=== PATIENT | male | born 1955 | race Caucasian/White ===

== ENCOUNTER 2024-12-04 05:49 | Inpatient (IN) ==
[2024-12-04] MEDS ORDERED: IOPAMIDOL 100 ML BOTTLE IV ONE (05:50)
[2024-12-04] MEDS: ACETAMINOPHEN 1,000 MG/100 ML BAG IV ONE (06:37)
[2024-12-04] MEDS: 0.9 % SODIUM CHLORIDE 1,000 ML IV ONE ×3 (06:42→11:46)
[2024-12-04 06:47] LABS: Basophils # (Auto) 0.04 K/mcL (0.00-0.30); Basophils % (Auto) 0.3 % (0.0-2.0); Eosinophils # (Auto) 0.19 K/mcL (0.00-0.70); Eosinophils % (Auto) 1.5 % (0.0-7.0); Hematocrit 40.3 % (40.1-51.0); Hemoglobin 13.8 g/dL (13.7-17.5); Lymphocytes # (Auto) 0.75 K/mcL (1.50-4.80); Lymphocytes % (Auto) 5.9 % (15.5-49.0); Mean Cell Volume 97.1 fL (80.0-100.0); Mean Corpuscular HGB Conc 34.2 g/dL (31.0-36.0); Mean Platelet Volume 9.5 fL (8.8-12.5); Monocytes % (Auto) 8.7 % (1.0-12.0); Neutrophils % (Auto) 83.4 % (38.0-78.0); Platelet Count 169 K/mcL (140-440); RBC 4.15 M/mcL (4.63-6.08); Red Cell Distribution Width 13.1 % (11.5-14.5); WBC 12.6 K/mcL (4.5-11.0)
[2024-12-04 06:59] LABS: ALT/SGPT 74 U/L (<40); AST/SGOT 52 U/L (<40); Albumin 3.8 gm/dL (3.2-5.2); Albumin/Globulin Ratio 1.4 (1.0-2.3); Alkaline Phosphatase 73 U/L (39-117); Bilirubin,Total 0.8 mg/dL (0.1-1.0); Blood Urea Nitrogen 15 mg/dL (8-23); Calcium 8.9 mg/dL (8.6-10.4); Carbon Dioxide 22 mmol/L (22-30); Chloride 105 mmol/L (96-108); Globulin 2.7 gm/dL (2.2-3.7); Glomerular Filtration Rate 62; Glucose 169 mg/dL (70-105); Sodium 139 mmol/L (133-145)
[2024-12-04] MEDS: ONDANSETRON 4 MG/2 ML VIAL IV ONE (07:30)
[2024-12-04] MEDS: cefTRIAXone 2 GM in DEXTROSE 5% IN WATER 50 ML IV ONE (07:48)
[2024-12-04] MEDS: AZITHROMYCIN 250 MG TABLET PO ONE (07:49)
[2024-12-04 07:59] LABS: Appearance,Urine Clear (Clear); Bilirubin,Urine Negative (Negative); Color,Urine Yellow; Glucose,Urine (UA) Negative (Negative); Ketones,Urine Negative (Negative); Leukocyte Esterase,Urine Negative /uL (Negative); Nitrate,Urine Negative (Negative); Protein,Urine Negative (Negative); Specific Gravity,Urine 1.015 (1.000-1.035); Urine Blood Trace-intact ery/mcL (Negative); Urine RBC 0 /hpf (0-3); Urine Squamous Epithelial Cell 0 /hpf (0-4); Urine WBC 0 /hpf (0-4)
[2024-12-04] MEDS ORDERED: POTASSIUM CHLORIDE 40 MEQ in DEXTROSE 5% IN WATER 500 ML IV PRN (11:39)
[2024-12-04] MEDS ORDERED: SENNOSIDES 1 TABLET PO PRN (11:39)
[2024-12-04] MEDS ORDERED: MAGNESIUM SULFATE 2 GM/50 ML BAG IV PRN (11:39)
[2024-12-04] MEDS ORDERED: IPRATROPIUM/ALBUTEROL 3 ML AMPUL.NEB NEB PRN (11:39)
[2024-12-04] MEDS ORDERED: POTASSIUM CHLORIDE 20 MEQ TABLET PO PRN ×2 (11:39)
[2024-12-04] MEDS ORDERED: POLYETHYLENE GLYCOL 3350 17 GM PACKET PO PRN (11:39)
[2024-12-04] MEDS ORDERED: ONDANSETRON 4 MG/2 ML VIAL IV PRN (11:39)
[2024-12-04] MEDS ORDERED: METOCLOPRAMIDE 10 MG/2 ML VIAL IV PRN (11:39)
[2024-12-04] MEDS: predniSONE 20 MG TABLET PO SCH (11:46)
[2024-12-04 11:48] LABS: Band Neutrophils % 9 % (0-10); Basophils % (Manual) 1 % (0-2); Lymphocytes % 7 % (15-49); Monocytes % (Manual) 10 % (1-12); Platelet Estimate NORMAL (Normal); RBC Morphology NORMAL (Normal); Reactive Lymphocytes 3 % (0-2); Segmented Neutrophils % 70 % (38-78)
[2024-12-04] MEDS: DOCUSATE SODIUM 100 MG CAPSULE PO SCH (21:26)
[2024-12-04] MEDS: ACETAMINOPHEN 325 MG TABLET PO PRN (23:56)
[2024-12-05 06:30] LABS: ALT/SGPT 61 U/L (<40); AST/SGOT 32 U/L (<40); Albumin 3.4 gm/dL (3.2-5.2); Albumin/Globulin Ratio 1.3 (1.0-2.3); Alkaline Phosphatase 65 U/L (39-117); Bilirubin,Direct 0.2 mg/dL (<0.3); Bilirubin,Total 0.4 mg/dL (0.1-1.0); Blood Urea Nitrogen 14 mg/dL (8-23); Carbon Dioxide 21 mmol/L (22-30); Chloride 107 mmol/L (96-108); Globulin 2.7 gm/dL (2.2-3.7); Glomerular Filtration Rate 69; Glucose 131 mg/dL (70-105); Lactate Dehydrogenase 145 U/L (135-225); Phosphorous 2.7 mg/dL (2.5-4.5); Potassium 4.1 mmol/L (3.3-5.1); Sodium 138 mmol/L (133-145); Triglycerides 89 mg/dL (<150)
[2024-12-05 06:38] LABS: Basophils # (Auto) 0.02 K/mcL (0.00-0.30); Basophils % (Auto) 0.2 % (0.0-2.0); Eosinophils # (Auto) 0.05 K/mcL (0.00-0.70); Eosinophils % (Auto) 0.4 % (0.0-7.0); Hematocrit 38.6 % (40.1-51.0); Hemoglobin 13.3 g/dL (13.7-17.5); Lymphocytes # (Auto) 1.64 K/mcL (1.50-4.80); Lymphocytes % (Auto) 13.2 % (15.5-49.0); Mean Cell Volume 97.2 fL (80.0-100.0); Mean Corpuscular HGB Conc 34.5 g/dL (31.0-36.0); Mean Platelet Volume 9.8 fL (8.8-12.5); Monocytes # (Auto) 1.18 K/mcL (0.10-0.90); Monocytes % (Auto) 9.5 % (1.0-12.0); Neutrophils % (Auto) 76.4 % (38.0-78.0); Platelet Count 192 K/mcL (140-440); RBC 3.97 M/mcL (4.63-6.08); Red Cell Distribution Width 13.2 % (11.5-14.5); WBC 12.4 K/mcL (4.5-11.0)
[2024-12-05] MEDS: LEVOTHYROXINE 100 MCG TABLET PO SCH (07:56)
[2024-12-05] MEDS: ASPIRIN 81 MG TAB.CHEW PO SCH (09:04)
[2024-12-05] MEDS: cefTRIAXone 1 GM VIAL IV SCH (09:04)
[2024-12-05] MEDS: ENOXAPARIN 40 MG/0.4 ML SYRINGE SQ SCH (09:04)
[2024-12-05] MEDS: AZITHROMYCIN 500 MG in 0.9 % SODIUM CHLORIDE 250 ML IV SCH (09:08)
[2024-12-05] MEDS: PNEUMOCOCCAL 23-VAL P-SAC VAC 0.5 ML SYRINGE IM ONE (11:10)
[2024-12-05] MEDS: ATORVASTATIN 40 MG TABLET PO SCH (20:45)
[2024-12-06 06:05] LABS: Basophils # (Auto) 0.03 K/mcL (0.00-0.30); Basophils % (Auto) 0.2 % (0.0-2.0); Eosinophils # (Auto) 0.12 K/mcL (0.00-0.70); Hematocrit 42.1 % (40.1-51.0); Hemoglobin 14.3 g/dL (13.7-17.5); Lymphocytes # (Auto) 2.63 K/mcL (1.50-4.80); Lymphocytes % (Auto) 21.2 % (15.5-49.0); Mean Cell Volume 97.2 fL (80.0-100.0); Mean Platelet Volume 9.5 fL (8.8-12.5); Monocytes # (Auto) 0.75 K/mcL (0.10-0.90); Neutrophils % (Auto) 70.8 % (38.0-78.0); Platelet Count 220 K/mcL (140-440); RBC 4.33 M/mcL (4.63-6.08); Red Cell Distribution Width 13.2 % (11.5-14.5); WBC 12.4 K/mcL (4.5-11.0)
[2024-12-06 06:35] LABS: C-Reactive Protein 4.27 mg/dL (0.03-0.80)
[2024-12-06 08:11] LABS: Blood Urea Nitrogen 18 mg/dL (8-23); Carbon Dioxide 20 mmol/L (22-30); Chloride 106 mmol/L (96-108); Glomerular Filtration Rate 69; Glucose 120 mg/dL (70-105); Potassium 4.2 mmol/L (3.3-5.1); Sodium 141 mmol/L (133-145)
[2024-12-06] MEDS: AZITHROMYCIN 250 MG TABLET PO ONE (08:40)
[2024-12-06 09:10] VITALS: O2SAT 98
[2024-12-06] MEDS: CALCIUM W/VIT D3 500 MG TABLET PO SCH (11:24)
[2024-12-06 12:23] VITALS: TEMP 98.4
[2024-12-06] MEDS ORDERED: CEFDINIR 300 MG CAPSULE PO SCH (21:00)
== END 2024-12-06 13:36 | disposition home or self-care (01) | DRG 871 ==
LOC: ED 05:49 → ICU 11:36 → MEDSUR 12-05 13:54
PROVIDERS: ADMIT Internal Medicine; ATTEND Student in an Organized Health Care Education/Training Program